=== PATIENT | male | born 1995 | race Two or more races ===

== ENCOUNTER 2018-04-23 16:18 | Emergency (ER) | payer OTHER ==
[~2018-04-23] VITALS: Ht 182.9 cm; Wt 82.1 kg
[2018-04-23 16:32] VITALS: BP 113/67
[2018-04-23] MEDS ORDERED: CEFTRIAXONE 500 MG VIAL ONE (16:58)
[2018-04-23] MEDS ORDERED: AZITHROMYCIN 250 MG TABLET ONE (16:58)
[2018-04-23] MEDS ORDERED: CEFTRIAXONE 500 MG VIAL IM ONE (17:00)
[2018-04-23] MEDS ORDERED: LIDOCAINE /MPF 1% VIAL 5 ML VIAL ONE (17:00)
[2018-04-23] MEDS ORDERED: AZITHROMYCIN 250 MG TABLET PO ONE (17:00)
[2018-04-23 17:53] LABS: APPEARANCE,URINE Clear (CLEAR); BILIRUBIN,URINE Negative (NEGATIVE); BLOOD, URINE Negative Ery/uL (NEGATIVE); COLOR,URINE Yellow (YELLOW); KETONES,URINE Negative (NEGATIVE); LEUKOCYTE ESTERASE ,URINE Negative (NEGATIVE); NITRITE, URINE Negative (NEGATIVE); PROTEIN,URINE Negative (NEGATIVE); UGLUCOSE Negative (NEGATIVE)
[2018-04-23 18:12] LABS: BACTERIA,URINE None seen /HPF (None Seen); RBC,URINE 0-2 /HPF (0-2); SQUAMOUS EPITHELIAL CELL,UR Few /HPF (None Seen); WBC,URINE 0-2 /HPF (0-3)
== END 2018-04-23 17:30 | disposition home or self-care (01) ==
LOC: ER 16:18
DX: N34.2 Other urethritis (principal); Z86.19 Personal history of other infectious and parasitic diseases
CPT/HCPCS: 81000-TC; 87491; 87591; J0696; J3490

== ENCOUNTER 2018-06-07 22:46 | Emergency (ER) | payer OTHER ==
[~2018-06-07] VITALS: Ht 182.9 cm; Wt 86.2 kg
[2018-06-07 23:00] VITALS: BP 126/83
== END 2018-06-07 23:42 | disposition home or self-care (01) ==
LOC: ER 22:49
DX: N48.89 Other specified disorders of penis (principal); Z59.0 Homelessness
CPT/HCPCS: Z7502